=== PATIENT | male | born 1970 | race Caucasian/White ===

== ENCOUNTER → 2018-01-18 | Outpatient (CLI) | payer BC | END | disposition home or self-care (01) | LOC: RAD 07:23 | DX: N28.1 Cyst of kidney, acquired (principal); K76.89 Other specified diseases of liver; R63.4 Abnormal weight loss | CPT/HCPCS: 74177 ==

== ENCOUNTER → 2018-01-27 | Outpatient (CLI) | payer BC | END | disposition home or self-care (01) | LOC: NUC 08:22 | DX: R11.0 Nausea (principal); R63.4 Abnormal weight loss | CPT/HCPCS: 78264; A9541 ==